=== PATIENT | male | born 1955 | race Caucasian/White ===

== ENCOUNTER 2023-08-17 09:14 | Outpatient (CLI) | payer MEDICARE, BC, SELFPAY | END 2023-08-17 09:15 | disposition home or self-care (01) | PROVIDERS: PCP Family Medicine; Visit Provider Family Medicine | DX: Z00.00 Encounter for general adult medical examination without abnormal findings (principal); I10 Essential (primary) hypertension; E78.2 Mixed hyperlipidemia; I25.10 Atherosclerotic heart disease of native coronary artery without angina pectoris; N52.9 Male erectile dysfunction, unspecified; Z12.5 Encounter for screening for malignant neoplasm of prostate | CPT/HCPCS: 80048; 80061; 84403; 84460; 85025; G0103 ==

== ENCOUNTER 2024-08-19 10:48 | Outpatient (CLI) | payer MEDICARE, BC, SELFPAY | END 2024-08-19 10:49 | disposition home or self-care (01) | PROVIDERS: PCP Family Medicine; Visit Provider Family Medicine | DX: E78.2 Mixed hyperlipidemia (principal); I10 Essential (primary) hypertension; Z12.5 Encounter for screening for malignant neoplasm of prostate | CPT/HCPCS: 80048; 80061; 84460; G0103 ==

== ENCOUNTER 2024-08-27 12:45 | Outpatient (CLI) | payer MEDICARE, BC, SELFPAY ==
--- NOTE | 2024-08-27 13:00 | CRLHL7_ITS ---
For Patients: As a result of the Century Cures Act, medical imaging exams and procedure reports are released immediately into your electronic medical record. You may view this report before your referring provider. If you have questions, please contact your health care provider. INDICATION: Lung cancer screening. TECHNIQUE: Noncontrast CT images of the chest. COMPARISON: CT chest 08/06/2021. FINDINGS: Severe centrilobular emphysema. Biapical scarring. Bronchiectasis in the right middle lobe and lingula. No focal consolidation, pleural effusion, or pneumothorax. Partially calcified nodule right lower lobe demonstrates increased central calcification and is not significantly changed in size (series 3 image 104). Multiple punctate calcified granulomas right lower lobe. No new concerning pulmonary nodules. The heart size is normal. No pericardial effusion. Coronary atherosclerotic calcifications. No mediastinal or hilar lymphadenopathy. Limited images through the upper abdomen are unremarkable. Chronic right rib fracture deformity. Multilevel thoracic spondylosis. No aggressive osseous lesions. IMPRESSION: 1. Partially calcified right lower lobe pulmonary nodule demonstrates increased central calcification and is not significantly changed in size. Lung rads category 2, benign. Continue annual screening with low-dose chest CT in 12 months. 2. Severe pulmonary emphysema. Please note that all CT scans at this facility use dose modulation, iterative reconstruction, and/or weight-based dosing when appropriate to reduce radiation dose to as low as reasonably achievable. Dictated by Reinier Flores MD @ 08/28/2024 8:27:47 AM (Electronically Signed)
== END 2024-08-27 12:46 | disposition home or self-care (01) ==
LOC: CT 12:47
PROVIDERS: PCP Family Medicine; Visit Provider Family Medicine
DX: Z12.2 Encounter for screening for malignant neoplasm of respiratory organs (principal); J43.9 Emphysema, unspecified; Z87.891 Personal history of nicotine dependence
CPT/HCPCS: 71271